=== PATIENT | female | born 1955 | race Caucasian/White ===

== ENCOUNTER → 2020-10-25 00:43 | Outpatient (CLI) | payer OTHER, SELFPAY ==
[2020-10-25 19:48] LABS: SARS-CoV-2 RNA PCR Negative
== END ==
PROVIDERS: PCP Family Medicine; Visit Provider Internal Medicine Gastroenterology
DX: Z01.812 Encounter for preprocedural laboratory examination (principal); Z20.822 Contact with and (suspected) exposure to COVID-19
CPT/HCPCS: C9803; U0003; U0005

== ENCOUNTER 2020-10-28 01:14 | Day surgery (SDC) | payer OTHER, SELFPAY ==
[2020-10-16 12:46] VITALS: BMI 25.1
[2020-10-28 07:37] VITALS: BP 104/66; PULSE 77; RESP 16; TEMP 36.8; O2SAT 99
[2020-10-28] MEDS: LACTATED RINGERS 1,000 ML 150 ML IV CONT (07:47)
--- NOTE | 2020-10-28 08:30 | WPDANESEPPF ---
Anes - Initial Pre Proc Eval Procedure: Operation Date: 10/28/20 08:45 Proposed Procedures p Screening Colonoscopy - Jose Jorge MD Date/Time: 10/28/20 08:30 Surgeon: Jose Jorge MD Pre Op Diagnosis: hx of colon polyp Patient Data Age: 65 Gender: F Height: 5 ft 9 in Weight: 77.2 kg Last Vital Signs Temp 36.8 C 10/28/20 07:37 Pulse 77 10/28/20 07:37 Resp 16 10/28/20 07:37 BP 104/66 10/28/20 07:37 Pulse Ox 99 10/28/20 07:37 Allergies Allergy/AdvReac Type Severity Reaction Status Date / Time No Known Allergies Allergy Unknown Verified 10/28/20 07:35 Home Medications Medication Instructions Recorded Confirmed Type estradiol 4 mcg vaginal insert 4 mcg VAGINAL 2XW #24 insert 08/07/19 03/11/20 Rx Patient hx anesthesia problems: none Family hx anesthesia problems: none PMFSH Past Medical History Medical History IgG deficiency Leukemia Umbilical hernia Family History Family History Father Family history of primary malignant neoplasm of liver Carcinoma of colon Grandparent Diabetes mellitus Mother Hypertension Cerebrovascular accident Carcinoma of colon Other Family history of allergic disorder Social History Social History Smoking status: Never smoker Alcohol intake: current Substance use type: does not use Living arrangements: with family Gender identity (if verbalized by the patient): Female Spiritual care concerns: No Anes - Eval Final PreProcedure Day of Procedure 10/28/20 08:30 Patient weight: normal Heart: regular rate and rhythm Lungs: clear to auscultation Airway: Mallampati scale class II Neurological: alert and oriented Last oral intake: >/= 8 hours ASA classification: III Emergent: no Anesthetic plan: proceed Anesthesia type and monitoring: general GIVS and standard monitoring Informed Consent: The patient's anesthetic plan and its attendant risks and benefits were discussed with the patient/family/POA. Questions were solicited and answers provided to the satisfaction of the patient/family/POA.
--- NOTE | 2020-10-28 08:55 | PM.HPGS ---
History of Present Illness History of Present Illness Consent: Risks, benefits, and alternatives have been discussed and questions answered. Patient agrees to proceed with procedure. Chief complaint: hx of colon polyp Narrative: Mary Alice Espinosa is a 65 year old female with polyp in 2017 Review of Systems Constitutional: Constitutional: Denies headache(s) and Denies weakness Eyes: Eyes: Denies blurry vision ENT: Reports Normal hearing present, Denies headache(s) and Denies neck pain Cardiovascular: Cardiovascular: Denies chest pain and Denies dyspnea Respiratory: Respiratory: Denies dyspnea Gastrointestinal: Gastrointestinal: Reports no additional gastrointestinal complaints Genitourinary: Genitourinary: Denies dysuria Musculoskeletal: Musculoskeletal: Denies neck pain Integumentary/Breasts: Skin/Breast: Denies dry skin Neurologic: Reports Normal hearing present, Denies headache(s) and Denies weakness Psychiatric: Psychiatric: Denies anxiety Endocrine: Endocrine: Denies change in body appearance Hematologic/Lymphatic: Hematologic/Lymphatic: Denies easy bleeding Allergic/Immunologic: Allergic/Immunologic: Denies urticaria PMFSH Past Medical History Medical History IgG deficiency Leukemia Umbilical hernia Family History Family History Father Family history of primary malignant neoplasm of liver Carcinoma of colon Grandparent Diabetes mellitus Mother Hypertension Cerebrovascular accident Carcinoma of colon Other Family history of allergic disorder Social History Social History Smoking status: Never smoker Alcohol intake: current Substance use type: does not use Living arrangements: with family Gender identity (if verbalized by the patient): Female Spiritual care concerns: No Meds Home Medications and Allergies Home Medications Medication Instructions Recorded Confirmed Type estradiol 4 mcg vaginal insert 4 mcg VAGINAL 2XW #24 insert 08/07/19 03/11/20 Rx Allergies Allergy/AdvReac Type Severity Reaction Status Date / Time No Known Allergies Allergy Unknown Verified 10/28/20 07:35 Vital Signs Vital Signs - 24 hr 10/28/20 07:37 Temperature 98.3 F Pulse Rate 77 Respiratory Rate 16 Blood Pressure 104/66 Pulse Oximetry 99 Exam Const: General: comfortable and no acute distress HENMT: General nose exam: Normal nares present Eyes: General: appearance normal, both eyes and all related structures Neck: Neck: no JVD Resp: Auscultation: clear to auscultation bilaterally Cardio: Rate: regular rate Rhythm: regular rhythm GI: Inspection: non-distended GI Palp: Yes Soft to palpation Skin: General skin exam: normal color Neuro: General: gait normal Speech: normal speech Extrem: General: normal to inspection Psych: Mental Status: mental status grossly normal Assessment and Plan Assessment and plan (1) Adenomatous colon polyp: Code(s): D12.6 - Benign neoplasm of colon, unspecified Status: Acute Assessment and Plan: proceed with colonoscopy
[2020-10-28 09:27] VITALS: BP 100/61; PULSE 59; RESP 16; O2SAT 100
[2020-10-28 09:37] VITALS: BP 97/47; PULSE 68; RESP 20; O2SAT 100
[2020-10-28 09:47] VITALS: BP 103/64; PULSE 56; RESP 14; O2SAT 100
== END 2020-10-28 10:08 | disposition home or self-care (01) ==
PROVIDERS: PCP Family Medicine; Visit Provider Internal Medicine Gastroenterology
PROC: 0DJD8ZZ Inspection of Lower Intestinal Tract, Via Natural or Artificial Opening Endoscopic (ICD-10-PCS; CPT 45378; principal; 2020-10-28 08:45)
DX: Z12.11 Encounter for screening for malignant neoplasm of colon (principal); D12.3 Benign neoplasm of transverse colon; K57.30 Diverticulosis of large intestine without perforation or abscess without bleeding; K64.8 Other hemorrhoids; D80.3 Selective deficiency of immunoglobulin G [IgG] subclasses; Z85.6 Personal history of leukemia
CPT/HCPCS: 45385; 88305; C9803; J2704; J7120; U0003; U0005

== ENCOUNTER → 2020-11-25 13:54 | Outpatient (CLI) | payer OTHER, SELFPAY ==
--- NOTE | ~2020-11-25 | CT_ITS ---
EXAMINATION: CT foot LT wo con DATE: 11/25/2020 14:12 INDICATION: Fracture. TECHNIQUE: Computed tomography (CT) of the left foot was performed without intravenous contrast. Axia l and coronal reconstructions were performed. Automated exposure control and iterative reconstruction technique were employed. The dose-length product was 167 mGy-cm. COMPARISON: MRI dated 02/05/2019 FINDINGS: Interval first tarsal metatarsal arthrodesis with solid osseous fusion and internal fixation with a p air of dorsal plate and screws. There is also been interval realignment osteotomy with screw fixation at the head of the second metatarsal which also solidly fused. Finally there has been interval osteo tomies for hammertoe corrections of the heads of the second and fourth proximal phalanges. The previo usly seen hallux valgus appears slightly decreased in severity. Alignment is otherwise normal. No fra ctures. Moderate osteoarthritis at the first metatarsophalangeal and third tarsal metatarsal joints. Mild osteoarthritis at several remaining tarsal metatarsal and interphalangeal joints. 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 Both the tibialis anterior and extensor hallucis longus tendons appeared thi ckened and with decrease in attenuation relative to the remaining tendons at the ankle which can be s een with tendinopathy. The level of the head of the talus there is a relatively abrupt transition to a smaller caliber of the extensor pollicis longus tendon which suggest possibility of at least partia l thickness tendon tear. Assessment of the ligaments and tendons is however significantly more limite d with CT than MRI. In addition assessment of the more distal extensor carpus longus tendon is limite d by postoperative scarring related to the first tarsal metatarsal arthrodesis and streak artifact fr om the associated fixation instrumentation. There is moderate fatty atrophy of the intrinsic musculat ure of the foot. IMPRESSION: 1. Postoperative changes as detailed above including first tarsal metatarsal instrumented arthrodesis , asymmetrically alignment osteotomy at the head of the second metatarsal and shortening osteotomies for hammertoe correction at the second and fourth proximal phalanges. No acute osseous abnormality. 2. Thickening and decreased attenuation of the tibialis anterior and extensor hallucis longus tendons which can be seen with tendinopathy. Relatively abrupt attenuation of the extensor atelectasis longu s tendon at the level of the head of the talus suggests possibility of at least partial thickness tea r. Could consider repeat MRI of the left foot and ankle for more definitive determination. Reviewed, dictated and finalized at location B. IMPRESSION: 1. Postoperative changes as detailed above including first tarsal metatarsal in strumented arthrodesis, asymmetrically alignment osteotomy at the head of the s econd metatarsal and shortening osteotomies for hammertoe correction at the sec ond and fourth proximal phalanges. No acute osseous abnormality. 2. Thickening and decreased attenuation of the tibialis anterior and extensor h allucis longus tendons which can be seen with tendinopathy. Relatively abrupt a ttenuation of the extensor atelectasis longus tendon at the level of the head o f the talus suggests possibility of at least partial thickness tear. Could cons ider repeat MRI of the left foot and ankle for more definitive determination.
== END ==
PROVIDERS: Visit Provider Podiatrist Foot & Ankle Surgery
DX: S92.314 Nondisplaced fracture of first metatarsal bone, right foot (principal); X58.XXXD Exposure to other specified factors, subsequent encounter; M65.872 Other synovitis and tenosynovitis, left ankle and foot
CPT/HCPCS: 73700

== ENCOUNTER 2021-01-05 14:57 | Outpatient (CLI) | payer OTHER, SELFPAY ==
--- NOTE | ~2021-01-05 | MM_ITS ---
EXAMINATION: MM screening misty BI w will HISTORY: Screening TECHNIQUE: Craniocaudal and mediolateral oblique 3-D tomosynthesis images were obtained and synthetic 2-D images were generated. CAD analysis was submitted and interpreted. COMPARISON: Comparison to multiple prior studies sequentially, with oldest reviewed study dated 10/2011. BREAST PARENCHYMAL COMPOSITION: The breasts are heterogeneously dense, which may obscure small masses . FINDINGS: There is no evidence of suspicious mass, calcification, or architectural distortion to sugg est malignancy in either breast. There has been no suspicious interval change. IMPRESSION: 1. No mammographic evidence of malignancy. 2. Recommend routine screening mammography in one year. BI-RADS Category 1: Negative Reviewed, dictated and finalized at location A.
--- NOTE | ~2021-01-05 | DEXA_ITS ---
Bone Density Report Name: Mary Alice Espinosa Age: 65 Sex: Female Ethnicity: White Date of : 1955 Indication: osteopenia; height loss; cancer; hysterectomy; Referring Provider: PRINCE MOSES Study: Bone densitometry was performed. Exam Date: January 05, 2021 Accession number: [id number] Bone Density: Region BMD T-score Z-score Classification AP Spine (L1-L4) 0.827 -2.0 -0.2 Osteopenia Femoral Neck (Left) 0.733 -1.0 0.5 Normal Total Hip (Left) 0.938 0.0 1.2 Normal Total Hip Bilateral Avg 0.925 -0.2 1.1 Normal Femoral Neck (Right) 0.698 -1.4 0.2 Osteopenia Total Hip (Right) 0.910 -0.3 1.0 Normal World Health Organization criteria for BMD impression classify patients as: Normal (T-score at or above -1.0), Osteopenia (T-score between -1.0 and -2.5), or Osteoporosis (T-score at or below -2.5). 10-year Fracture Risk(1): Major Osteoporotic Fracture 8.6% Hip Fracture 0.8% Reported Risk Factors: [place] (), Neck BMD=0.698, BMI=25.8 (1) FRAX(R) Version 3.08. Fracture probability calculated for an untreated patient. Fracture probability may be lower if the patient has received treatment. Previous Exams: Region Exam Age BMD T-score BMD Change BMD Change Date g/cm2 vs Baseline vs Previous AP Spine(L1-L4) 01/05/2021 65 0.827 -2.0 -0.164(-16.6%) -0.021(-2.5%)# 04/08/2017 61 0.848 -1.8 -0.143(-14.4%) -0.143(-14.4%) 03/24/2012 56 0.992 -0.5 Total Hip(Left) 01/05/2021 65 0.938 0.0 -0.108(-10.4%) 0.029(3.2%)# 04/08/2017 61 0.908 -0.3 -0.138(-13.2%) -0.138(-13.2%) 03/24/2012 56 1.046 0.9 Total Hip(Right) 01/05/2021 65 0.910 -0.3 -0.072(-7.3%)* 0.053(6.2%)# 04/08/2017 61 0.857 -0.7 -0.125(-12.7%) -0.125(-12.7%) 03/24/2012 56 0.982 0.3 *Denotes significance at 95% confidence level, LSC for AP Spine = 0.022 g/cm2, LSC for Total Hip = 0.027 g/cm2 Clinical Information Provided by Patient: Has used the following medications: Vitamin D, Calcium Has the following medical conditions: Cancer, Hysterectomy Patient maximum height was 70 No regular weight bearing exercise Onset of menses at age 14 Number of children 1 Impression: The patient has low bone mass, based on the Total Spine T-score. The patient has an estimated ten-year risk of hip fracture of 0.8% and an estimated ten-year risk of major fracture of 8.6%, based on the WHO FRAX algorithm. No significant bone loss was observed. Discuss
== END 2021-01-05 14:58 | disposition home or self-care (01) ==
LOC: ANHIMG 14:59
PROVIDERS: PCP Family Medicine; Visit Provider Obstetrics & Gynecology
DX: Z12.31 Encounter for screening mammogram for malignant neoplasm of breast (principal); Z78.0 Asymptomatic menopausal state; M85.88 Other specified disorders of bone density and structure, other site; M85.851 Other specified disorders of bone density and structure, right thigh
CPT/HCPCS: 77063; 77067; 77080

== ENCOUNTER 2021-01-22 06:51 | Outpatient (CLI) | payer OTHER, SELFPAY ==
[2021-01-22 07:56] LABS: Alanine Aminotransferase 22 U/L (4-35); Albumin Level 4.2 g/dL (3.5-5.1); Alkaline Phosphatase 80 U/L (38-126); Anion Gap 8 mmol/L (8-16); Aspartate Amino Transferase 31 U/L (14-36); Bilirubin,Total 0.6 mg/dL (0.2-1.3); Blood Urea Nitrogen 12 mg/dL (7-17); Calcium 9.1 mg/dL (8.4-10.2); Carbon Dioxide 27 mmol/L (22-30); Chloride 109 mmol/L (98-107); Cholesterol 218 mg/dL (0-200); Estimated Glomerular Filt Rate > 60; Glucose 97 mg/dL (65-105); HDL Direct 62 mg/dL; Sodium 144 mmol/L (137-145); Triglycerides 101 mg/dL (<150)
[2021-01-22 08:07] LABS: LDL Cholesterol Direct 103 mg/dL
[2021-01-22 08:27] LABS: Vitamin D 25 Hydroxy 64.8 ng/mL
[2021-01-22 08:38] LABS: Eosinophils Absolute Auto 0.1 K/mm3 (0-0.3); Hematocrit 34.4 % (37.0-47.0); Hemoglobin 12.2 g/dL (12.0-15.0); Immature Granulocyte Absolute 0.01 K/mm3 (0.00-0.031); Immature Granulocyte Percent A 0.3 % (0-0.5); Lymphocytes Percent Auto 23.5 % (18.3-44.2); Mean Corpuscular HGB Conc 35.5 g/dl (32-36); Mean Corpuscular Hemoglobin 34.1 pg (26-34); Mean Corpuscular Volume 96.1 fl (80-100); Mean Platelet Volume 9.9 fl (7.4-10.4); Monocytes Absolute Auto 0.3 K/mm3 (0.1-0.6); Monocytes Percent Auto 11.4 % (2.6-8.5); Neutrophils Absolute Auto 1.8 K/mm3 (1.3-6.7); Neutrophils Percent Auto 61.8 % (45.5-73.1); Platelet Count Result 132 k/mm3 (150-375); Red Blood Count 3.58 M/mm3 (4.2-5.4)
== END 2021-01-22 06:52 | disposition home or self-care (01) ==
PROVIDERS: PCP Family Medicine; Referring Provider Family Medicine; Visit Provider Obstetrics & Gynecology
DX: Z13.220 Encounter for screening for lipoid disorders (principal); R10.11 Right upper quadrant pain; N95.1 Menopausal and female climacteric states
CPT/HCPCS: 36415; 80053; 80061; 82306; 82728; 85025

== ENCOUNTER 2021-01-29 07:34 | Outpatient (CLI) | payer OTHER, SELFPAY ==
--- NOTE | ~2021-01-29 | US_ITS ---
US abdomen complete EXAMINATION: US Abdomen Complete INDICATION: Right upper quadrant abdominal pain PROCEDURE: Realtime High Resolution abdomen ultrasound. COMPARISON: Ultrasound dated 03/02/2017 FINDINGS: There are gallstones. There are gallbladder polyps measuring 6 mm or less. 6 Common bile d uct measures mm. Liver echotexture within normal limits without focal mass. Pancreas within normal limits. Pancreati c tail is obscured by bowel gas. Spleen is borderline measuring 12.7 cm. 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 Right kidney is normal without hydronephrosis, contour deforming mass or renal calculi. Visualized aspects of the aorta and IVC are within normal limits. Portal vein is patent. No sonograph ic Ferrari's sign indicated by the technologist. IMPRESSION: 1: Cholelithiasis with gallbladder polyps measuring up to 6 mm, unchanged. 2: Borderline size spleen measuring 12.7 cm. Reviewed, dictated and finalized at location B.
== END 2021-01-29 07:35 | disposition home or self-care (01) ==
LOC: ANHIMG 07:37
PROVIDERS: PCP Family Medicine; Visit Provider Family Medicine
DX: R10.11 Right upper quadrant pain (principal); K80.20 Calculus of gallbladder without cholecystitis without obstruction
CPT/HCPCS: 76700

== ENCOUNTER 2021-03-06 08:10 | Outpatient (CLI) | payer OTHER, SELFPAY ==
[2021-03-06 08:50] LABS: Alanine Aminotransferase 22 U/L (4-35); Albumin Level 4.4 g/dL (3.5-5.1); Alkaline Phosphatase 95 U/L (38-126); Amylase 66 U/L (30-110); Aspartate Amino Transferase 26 U/L (14-36); Bilirubin,Total 0.7 mg/dL (0.2-1.3); Lipase 63 U/L (23-300)
== END 2021-03-06 08:11 | disposition home or self-care (01) ==
LOC: ANHSURGERY 08:13
PROVIDERS: PCP Family Medicine; Visit Provider Surgery
DX: K80.10 Calculus of gallbladder with chronic cholecystitis without obstruction (principal); Z85.6 Personal history of leukemia; Z01.818 Encounter for other preprocedural examination
CPT/HCPCS: 36415; 80076; 82150; 83690

== ENCOUNTER 2021-03-09 02:36 | Day surgery (SDC) | payer OTHER, SELFPAY ==
[2021-03-05 10:00] VITALS: BMI 25.9
[2021-03-09] VITALS (11 sets, daily range): BP systolic 104–123; BP diastolic 55–69; PULSE 50–75; RESP 13–20; TEMP 36.8; O2SAT 100
--- NOTE | 2021-03-09 07:34 | WPDANESEPPF ---
Anes - Initial Pre Proc Eval Procedure: Operation Date: 03/09/21 11:00 Proposed Procedures p Laparoscopic Cholecystectomy Possible Intraoperative Cholangiogram, Possible Open - Tony Perales MD s Open Umbilical Hernia Repair, Excision of Right Upper Quadrant Skin Lesion - Tony Perales MD Date/Time: 03/09/21 07:34 Surgeon: Tony Perales MD Pre Op Diagnosis: cholelithiasis with cholecystitis, umbili hernia, Patient Data Age: 65 Gender: F Height: 1.75 m Weight: 79.54 kg Allergies Allergy/AdvReac Type Severity Reaction Status Date / Time No Known Allergies Allergy Unknown Verified 03/09/21 09:21 Home Medications Medication Instructions Recorded Confirmed Type B-complex with vitamin C 1 tablet PO DAILY 12/02/20 03/09/21 History calcium carbonate 195 mg calcium 195 mg PO DAILY tablet 12/02/20 03/09/21 History (500 mg) chewable tablet zinc 50 mg tablet 50 mg PO DAILY 12/02/20 03/09/21 History estradiol 4 mcg vaginal insert 4 mcg VAGINAL 2XW #24 insert 12/15/20 03/09/21 Rx ascorbic acid (vitamin C) 500 mg 500 mg PO DAILY 03/02/21 03/09/21 History capsule,extended release cholecalciferol (vitamin D3) 10 10 mcg PO DAILY 03/02/21 03/09/21 History mcg (400 unit) capsule Patient hx anesthesia problems: none Family hx anesthesia problems: none PMFSH Past Medical History Medical History Adenomatous colon polyp BMI 25.0-25.9,adult Gallstones History of blood transfusion IgG deficiency Leukemia Right upper quadrant abdominal pain Screening for lipid disorders Umbilical hernia Surgical History Surgical History H/O: hysterectomy History of bunionectomy History of section History of tubal ligation Family History Family History Father Family history of primary malignant neoplasm of liver Carcinoma of colon Grandparent Diabetes mellitus Mother Hypertension Cerebrovascular accident Carcinoma of colon Other Family history of allergic disorder Social History Social History Social History: Drinks caffeinated tea daily Smoking status: Never smoker Second hand tobacco smoke exposure: No Alcohol intake: current Alcohol use details: STATES MAYBE 2-3 DRINKS A MONTH Substance use: never Substance use type: does not use Living arrangements: with family Additional living arrangements comments: with spouse Gender identity (if verbalized by the patient): Female Spiritual care concerns: No Anes - Eval Final PreProcedure Day of Procedure 03/09/21 07:34 Patient weight: overweight Heart: regular rate and rhythm Lungs: clear to auscultation and normal air movement Airway: Mallampati scale class II Neurological: alert and oriented Last oral intake: >/= 8 hours ASA classification: III Emergent: no Anesthetic plan: proceed Anesthesia type and monitoring: general ETT and standard monitoring Informed Consent: The patient's anesthetic plan and its attendant risks and benefits were discussed with the patient/family/POA. Questions were solicited and answers provided to the satisfaction of the patient/family/POA.
[2021-03-09] MEDS: ACETAMINOPHEN 500 MG TABLET 1000 MG PO (09:36)
[2021-03-09] MEDS: LACTATED RINGERS 1,000 ML 30 ML IV CONT ×2 (10:00→13:37)
[2021-03-09] MEDS: KETOROLAC 15 MG/ML VIAL (*BKC) IV PUSH (10:00)
--- NOTE | 2021-03-09 10:54 | WPDHPUPDATE1 ---
History and Physical Update Update Date/Time: 03/09/21 10:54 History and Physical has been reviewed, including an updated exam of the patient. There are NO changes in the patient's condition. Risks, benefits, and alternatives have been discussed and questions answered. Patient agrees to proceed with procedure.
[2021-03-09] MEDS: ceFAZolin 2 GM/D5W 50 ML 2 GM/50 ML BAG IVPB (11:03)
--- NOTE | 2021-03-09 13:44 | W.PM.PROC2 ---
Procedure Note - Detailed Date of Procedure 03/09/21 Pre-op Diagnosis 1. Chronic cholelithiasis with cholecystitis 2. umbilical hernia 3. dark brown skin lesion RUQ of the abdomen. Post-op Diagnosis same Procedure Performed 1. Laparoscopic cholecystectomy 2. Open repair of umbilical hernia with sutures 3. Excision of skin lesion right upper quadrant of the abdomen. Surgeon Tony Perlaes MD Rn Liaison MYRANDA Horner, OR engineer first assistant Anesthesia general Indications Increasing number of episodes of right upper quadrant epigastric pain with known cholelithiasis by ultrasound. Bulging at the umbilicus, upper end, with suspected fascial defect and reducible umbilical hernia A changing dark skin lesion on the skin of the right upper quadrant the abdomen ( 6 mm in size). Findings there was a 15 mm fascial defect under the upper edge of the umbilicus with incarcerated preperitoneal fat within it. There was a non inflamed gallbladder with significant omental adhesions to its underside and palpable cholelithiasis upon removal There was a oval 6 x 4 mm skin lesion that is dark brown in the upper quadrant of the abdomen slightly below the costal margin on the right. Description of Procedure Patient was seen preoperatively in the holding area and risks, benefits and alternatives confirmed. Patient was taken to the operating room and general anesthesia was induced. A time out was then preformed with the surgery team confirming patient and site of surgery. The abdomen was prepped and draped in the usual sterile fashion. Incision was made just above the umbilicus with an 15 blade knife. Since the patient has a umbilical defect under the upper portion of the umbilicus I made this in a curvilinear fashion with the two outside corners angled slightly down in a frown shape. The entire incision was about 3 cm long. We then carefully dissected the umbilical skin off the underlying defect which contained some preperitoneal fat. This almost looked like a lipoma but I believe it was preperitoneal fat up in a very thin umbilical hernia sac. The sac and the preperitoneal tissues were dissected off the underlying preperitoneal tissue which we grasped with a hemostat on the underlying omental tissue holding it tightly, so that it would not bleed and retract into the abdomen. Then I amputated the preperitoneal fat at the level of the fascia and the sac and preperitoneal fat were carefully passed off the field for specimen. We then continued observing the underlying tissues to be sure there was no bleeding. I placed 2 stay sutures of O- Vicryl on either side of the umbilical defect and was then able to slide in the Walker cannula through the fascial defect into the peritoneum. First under low flow and then under high flow the abdomen was insufflated with carbon dioxide never exceeding a pressure of 14. Three 5 mm trocars were then introduced under direct vision. The following trocars were introduced under direct vision: a 5 mm in the epigastrium and two 5 mm trocars along the right costal margin laterally in the subcostal area. There were significant omental adhesions to the underside of the gallbladder. These were taken down with blunt and sharp dissection using some Bovie cautery for hemostasis. We were able to dissect this completely away from the neck of the gallbladder. I then carefully used the L-shaped cautery and the [place] dissector to dissect out the triangle of Calot. I then was able to dissect out both the cystic duct and cystic artery and identify a window of safety. The gall bladder was grasped and the cystic duct and artery were dissected free and clipped with an 5 mm endo-clip javascript programmer. The cystic duct and artery were clipped with use of 2 clips on the patient's side and one on the gallbladder side utilizing a 5 mm endoclip-javascript programmer. The cystic duct was then transected. The cystic artery was also transected at this point. The gall bladder was remov
[2021-03-09] MEDS: oxyCODONE HCL (*CRX) 5 MG TAB IR PO (14:37)
== END 2021-03-09 15:50 | disposition home or self-care (01) ==
PROVIDERS: PCP Family Medicine; Visit Provider Surgery
PROC: 0FT44ZZ Resection of Gallbladder, Percutaneous Endoscopic Approach (ICD-10-PCS; CPT 47562; principal; 2021-03-09 11:00)
PROC: (CPT 47562; 2021-03-09 11:00)
DX: K80.10 Calculus of gallbladder with chronic cholecystitis without obstruction (principal); K40.30 Unilateral inguinal hernia, with obstruction, without gangrene, not specified as recurrent; D23.5 Other benign neoplasm of skin of trunk; K66.0 Peritoneal adhesions (postprocedural) (postinfection); E66.3 Overweight; Z68.26 Body mass index [BMI] 26.0-26.9, adult; Z85.6 Personal history of leukemia
CPT/HCPCS: 47562; 49587; 11401; 36415; 80076; 82150; 83690; 88302; 88304; 88305; A9270; J0690; J1100; J1885; J2704; J2710; J3010; J7030; J7120

== ENCOUNTER → 2021-04-01 09:53 | Outpatient (CLI) | payer OTHER, SELFPAY ==
--- NOTE | ~2021-04-01 | MR_ITS ---
EXAMINATION: MR ankle LT wo con DATE: 04/01/2021 10:42 INDICATION: Inability to move the great toe and pain. From the great toe to the ankle with possible e xtensor hallucis longus tendon tear. TECHNIQUE: Magnetic resonance imaging (MRI) of the left foot and ankle was performed without intraven ous contrast. Sequences included axial, sagittal and coronal PD-weighted FSE and fluid sensitive FSE STIR. COMPARISON: Left foot CT dated 11/25/2020 and MRI dated 02/05/2019 FINDINGS: Bones/other: First tarsal metatarsal arthrodesis with magnetic metallic field artifact associated with a pair of d orsal plate and screw fixations spanning the fused joint space. Additional postoperative changes at t he second metatarsophalangeal joint with fixation screws at the head of the second metatarsal likely related to prior realignment osteotomy. There is mild valgus angulation at the second metatarsophalan geal joint. There is additional osteotomies at the heads of the second and fourth proximal phalanges. Polyarticular osteoarthritis, severe at the third tarsal metatarsal joint with subarticular cystic c hange and edema, moderate severity at the first metatarsophalangeal joint joint and mild at remaining tarsal metatarsal and many of the interphalangeal joints. No fracture, osteonecrosis or pathologic m arrow replacing process. Progression of fatty atrophy of the intrinsic musculature of the foot. Medial ankle ligaments: Deep and superficial deltoid ligaments as well as the spring ligament are normal. Lateral ankle ligaments: The anterior and posterior inferior tibiofibular ligaments are normal. The anterior talofibular, calc aneofibular and posterior talofibular ligaments are normal. Tendons: Achilles tendon is normal. The peroneus longus and brevis tendons are normal. The tibialis anterior a nd extensor digitorum longus tendons are normal. As on the prior CT there is relatively abrupt attenu ation of the extensor hallucis longus tendon at the level of the talonavicular joint line. The patien t is obscured by the magnetic field artifact at the level of the medial cuneiform and base of the fir st metatarsal. The tendon or tendon sheath however appears significantly attenuated at the level of t he neck of the first metatarsal relative to its thickness at this level on the prior MRI. Findings ar e consistent with recent partial if not complete tear however no discrete tear defect is appreciated, potentially obscured by the region of artifact. The tibialis posterior, flexor digitorum longus and flexor hallucis longus tendons are normal. Plantar fascia: Chronic mild plantar enthesopathy with mild thickening without significant increased signal at the pr oximal plantar aponeurosis and with small plantar calcaneal spur at the calcaneal attachment. Fluid: No joint effusions, bursitis or other abnormal fluid collections at the left foot or ankle. IMPRESSION: 1. The distal extensor hallucis longus tendon appears significantly attenuated both with respect to t he more proximal tendon as well as with respect to the full-thickness of the distal tendon on the timbo or MRI from 2019 consistent with at least partial if not complete tear. The intervening portion of th e tendon at the level of the medial cuneiform and base of the first metatarsal is however obscured by metallic magnetic field artifact from plate and screw fixations for the first tarsal metatarsal arth rodesis. 2. Polyarticular osteoarthritis in the mid and forefoot, severe at the third tarsal metatarsal joint and moderate severity at the first metatarsophalangeal joint. Reviewed, dictated and finalized at location A.
== END ==
PROVIDERS: Visit Provider Podiatrist Foot & Ankle Surgery
DX: M65.872 Other synovitis and tenosynovitis, left ankle and foot (principal); M19.072 Primary osteoarthritis, left ankle and foot
CPT/HCPCS: 73721

== ENCOUNTER 2022-04-02 07:53 | Outpatient (CLI) | payer MEDICARE, OTHER, SELFPAY ==
--- NOTE | ~2022-04-02 | MM_ITS ---
EXAMINATION: MM screening [facility] BI w will HISTORY: Screening mammogram TECHNIQUE: Craniocaudal and mediolateral oblique 3-D tomosynthesis images were obtained and synthetic 2-D images were generated. CAD analysis was submitted and interpreted. COMPARISON: 01/05/2021, 08/03/2018, 04/08/2017 BREAST PARENCHYMAL COMPOSITION: The breasts are heterogeneously dense, which may obscure small masses . FINDINGS: There is no suspicious mass, calcification, or architectural distortion to suggest malignan cy in either breast. There has been no suspicious interval change. IMPRESSION: 1. No mammographic evidence of malignancy. 2. Recommend routine screening mammography in one year. BI-RADS Category 1: Negative Reviewed, dictated and finalized at location A.
== END 2022-04-02 07:54 | disposition home or self-care (01) ==
LOC: ANHIMG 07:57
PROVIDERS: PCP Family Medicine; Visit Provider Obstetrics & Gynecology
DX: Z12.31 Encounter for screening mammogram for malignant neoplasm of breast (principal)
CPT/HCPCS: 77063; 77067

== ENCOUNTER 2023-04-13 13:40 | Outpatient (CLI) | payer MEDICARE, OTHER, SELFPAY ==
--- NOTE | ~2023-04-13 | XR_ITS ---
XR hip RT min 2V 04/13/2023 13:58 Indication: Right hip pain. Limited range of motion. Procedure: 2 views right hip Comparison: 02/27/2018 Findings: No fracture or traumatic malalignment. Mild osteoarthritis of the right hip. No significant joint space narrowing. No soft tissue abnormality. No foreign bodies. Impression: 1: Mild osteoarthritis of the right hip. Reviewed, dictated and finalized at location B. Impression: 1: Mild osteoarthritis of the right hip.
== END 2023-04-13 13:41 | disposition home or self-care (01) ==
LOC: ANHIMG 13:43
PROVIDERS: PCP Family Medicine; Visit Provider Family Medicine
DX: M16.11 Unilateral primary osteoarthritis, right hip (principal)
CPT/HCPCS: 73502

== ENCOUNTER 2023-04-15 07:11 | Outpatient (CLI) | payer MEDICARE, OTHER, SELFPAY ==
[2023-04-15 07:59] LABS: Alanine Aminotransferase 17 U/L (6-35); Albumin Level 4.5 g/dL (3.5-5.1); Alkaline Phosphatase 94 U/L (38-126); Anion Gap 5 mmol/L (8-16); Aspartate Amino Transferase 22 U/L (14-36); Bilirubin,Total 0.8 mg/dL (0.2-1.3); Blood Urea Nitrogen 15 mg/dL (7-17); Calcium 9.1 mg/dL (8.4-10.2); Carbon Dioxide 28 mmol/L (22-30); Chloride 106 mmol/L (98-107); Cholesterol 218 mg/dL (0-200); Estimated Glomerular Filt Rate > 60; Glucose 103 mg/dL (65-110); HDL Direct 66 mg/dL; Potassium 4.4 mmol/L (3.4-5.0); Sodium 139 mmol/L (137-145); Triglycerides 136 mg/dL (<150)
[2023-04-15 08:09] LABS: LDL Cholesterol Direct 115 mg/dL
[2023-04-15 11:52] LABS: Hematocrit 39.2 % (37.0-47.0); Hemoglobin 13.5 g/dL (12.0-15.0); Mean Corpuscular HGB Conc 34.4 g/dl (32-36); Mean Corpuscular Hemoglobin 33.8 pg (26-34); Mean Corpuscular Volume 98.2 fl (80-100); Mean Platelet Volume 10.4 fl (7.4-10.4); Platelet Count Result 135 k/mm3 (150-375); Red Blood Count 3.99 M/mm3 (4.2-5.4); Red Cell Distribution Width 12.1 % (11.5-14.5); White Blood Count 3.6 K/mm3 (4.5-10.0)
[2023-04-22 14:11] LABS: Estrogen 60 pg/mL
== END 2023-04-15 07:12 | disposition home or self-care (01) ==
PROVIDERS: PCP Family Medicine; Visit Provider Nurse Practitioner Family
DX: R23.2 Flushing (principal); J10.1 Influenza due to other identified influenza virus with other respiratory manifestations; Z85.6 Personal history of leukemia; E78.00 Pure hypercholesterolemia, unspecified
CPT/HCPCS: 36415; 80053; 80061; 82672; 84443; 85027

== ENCOUNTER → 2023-05-09 14:22 | Outpatient (CLI) | payer MEDICARE, OTHER, SELFPAY ==
--- NOTE | ~2023-05-09 | XR_ITS ---
EXAMINATION: XR thoracic spine 3V DATE: 05/09/2023 14:37 INDICATION: Mid back pain. TECHNIQUE: 3 views of thoracic spine on 4 radiographs were obtained. COMPARISON: Chest 2 views 05/16/2018 FINDINGS: There is 5 degrees levocurvature of thoracic spine. There is mild chronic height loss of mu ltiple midthoracic vertebral bodies. There is mildly decreased disc height at multiple levels in the mid thoracic spine. There are endplate osteophytes at a few levels. IMPRESSION: 1. Mild thoracic spondylosis. Reviewed, dictated and finalized at location E.
== END ==
PROVIDERS: PCP Family Medicine; Visit Provider Family Medicine
DX: M47.894 Other spondylosis, thoracic region (principal)
CPT/HCPCS: 72072

== ENCOUNTER 2023-05-13 14:40 | Outpatient (CLI) | payer MEDICARE, OTHER, SELFPAY ==
--- NOTE | ~2023-05-13 | MR_ITS ---
EXAMINATION: MR hip RT wo con DATE: 05/13/2023 15:41 INDICATION: Right hip pain TECHNIQUE: Magnetic resonance imaging (MRI) of the right hip was performed without intravenous contr ast. Sequences included full-field axial PD-weighted FS FSE and T1-weighted FSE, coronal of the pelvi s with PD-weighted FS FSE, small field of view of the right hip with axial PD-weighted FS FSE, sagit mikaela PD-weighted FS FSE and coronal PD weighted FS FSE. Additional radial T1-weighted FGR oriented ort hogonal to the acetabular rim were obtained for evaluation of the labrum. COMPARISON: None FINDINGS: Bones/labrum/cartilage: Alignment is normal. No fracture, avascular necrosis or pathologic marrow replacing process. Lumbar spondylosis with severe disc height loss and mild degenerative endplate changes at L5-S1. There is de generation of the anterosuperior right acetabular labrum with more clearly defined linear labral tear beginning at the 12:00 position and extending posteriorly to the 9:00 position. Mild to moderate ost eoarthritis at the right hip with nonuniform joint space narrowing with posterior predominant partial -thickness cartilage loss. Degenerative subarticular cystlike changes along the superolateral rim of the right acetabulum and the posterior inferior articular surface of the acetabulum. Subtle cortical irregularity along the posterior inferior right femoral head. Although not diagnostically evaluated o n the large [id number] images, there appears to be a linear tear at the posterior left acetabular labrum. Fluid: Symmetric physiologic amount of fluid within both hip joints. Small amount of likely physiologic free fluid in the deep pelvis. Soft tissues: Normal and symmetric muscle bulk and signal in the pelvis and visualized proximal thighs. The iliopso as, gluteal and proximal hamstring tendons are normal. The uterus is not identified and has likely be en surgically resected. Limited evaluation of visceral organs of the pelvis is otherwise unremarkable . No pathologically enlarged pelvic/inguinal lymphadenopathy. IMPRESSION: 1. Mild to moderate right hip osteoarthritis with associated anterior labral degeneration more discre te posterior labral tear. Reviewed, dictated and finalized at location A. IMPRESSION: 1. Mild to moderate right hip osteoarthritis with associated anterior labral de generation more discrete posterior labral tear.
== END 2023-05-13 14:41 | disposition home or self-care (01) ==
PROVIDERS: PCP Family Medicine; Visit Provider Family Medicine
DX: M16.11 Unilateral primary osteoarthritis, right hip (principal)
CPT/HCPCS: 73721

== ENCOUNTER 2023-06-23 12:24 | Outpatient (CLI) | payer MEDICARE, OTHER, SELFPAY ==
--- NOTE | ~2023-06-23 | DEXA_ITS ---
Bone Density Report Name: ALTHEA TELLES Age: 67 Sex: Female Ethnicity: White Date of : 1955 Indication: osteopenia; height loss; cancer; hysterectomy; postmenopausal Referring Provider: GUADALUPE HESTER Study: Bone densitometry was performed. Exam Date: June 23, 2023 Accession number: [id number] Bone Density: Region BMD T-score Z-score Classification AP Spine(L1-L4) 0.825 -2.0 -0.1 Osteopenia Femoral Neck (Left) 0.678 -1.5 0.1 Osteopenia Total Hip (Left) 0.930 -0.1 1.3 Normal Femoral Neck (Right) 0.723 -1.1 0.5 Osteopenia Total Hip (Right) 0.896 -0.4 1.0 Normal Total Hip Mean 0.913 -0.3 1.2 Normal World Health Organization criteria for BMD impression classify patients as: Normal (T-score at or above -1.0), Osteopenia (T-score between -1.0 and -2.5), or Osteoporosis (T-score at or below -2.5). 10-year Fracture Risk(1): Major Osteoporotic Fracture 9.6% Hip Fracture 1.2% Reported Risk Factors: [place] (), Neck BMD=0.678, BMI=26.0 (1) FRAX(R) Version 3.08. Fracture probability calculated for an untreated patient. Fracture probability may be lower if the patient has received treatment. Previous Exams: Region Exam Age BMD T-score BMD Change BMD Change Date g/cm2 vs Baseline vs Previous AP Spine (L1-L4) 06/23/2023 67 0.825 -2.0 -0.167 (-16.8% -0.003 (-0.3%) 01/05/2021 65 0.827 -2.0 -0.164 (-16.6% -0.021 (-2.5%) 04/08/2017 61 0.848 -1.8 -0.143 (-14.4% -0.143 (-14.4% 03/24/2012 56 0.992 -0.5 Total Hip(Left) 06/23/2023 67 0.930 -0.1 -0.116 (-11.1% -0.008 (-0.8%) 01/05/2021 65 0.938 0.0 -0.108 (-10.4% 0.029 (3.2%)# 04/08/2017 61 0.908 -0.3 -0.138 (-13.2% -0.138 (-13.2% 03/24/2012 56 1.046 0.9 Total Hip(Right) 06/23/2023 67 0.896 -0.4 -0.086 (-8.8%) -0.014 (-1.6%) 01/05/2021 65 0.910 -0.3 -0.072 (-7.3%) 0.053 (6.2%)# 04/08/2017 61 0.857 -0.7 -0.125 (-12.7% -0.125 (-12.7% 03/24/2012 56 0.982 0.3 *Denotes significance at 95% confidence level, LSC for AP Spine = 0.022 g/cm2, LSC for Total Hip = 0.027 g/cm2 # Denotes dissimilar scan types or analysis methods Clinical Information Provided by Patient: Has the following medical conditions: Cancer, Hysterectomy Patient maximum height was 69 Menopause Age: 50 Drinks caffeinated beverages Onset of menses at age 14 Number of children 3 Impression: The patient has low bone mass, bas
== END 2023-06-23 12:25 | disposition home or self-care (01) ==
LOC: ANHIMG 12:25
PROVIDERS: PCP Family Medicine; Visit Provider Family Medicine
DX: Z78.0 Asymptomatic menopausal state (principal); M85.88 Other specified disorders of bone density and structure, other site; M85.852 Other specified disorders of bone density and structure, left thigh; M85.851 Other specified disorders of bone density and structure, right thigh
CPT/HCPCS: 77080

== ENCOUNTER 2025-04-09 07:25 | Outpatient (CLI) | payer MEDICARE, OTHER, SELFPAY ==
--- OUTSIDE RECORDS SUMMARY | 2016-12-09 04:30 | XMS_ITS | Continuity of Care Document ---
Author Organization [facility] Address [id number] [place] [address] [address] [place] [address] Phone Care Team Providers Care Filenet Developer Name Role Phone Bertrand OD OD, Annmarie Unavailable Unavai lable Allergies, Adverse Reactions, Alerts Substance Reaction Status Criticality No Known Allergies Resolved No Inform ation Medications Medication Instructions Dosage Effective Dates (start - stop) Status Comments Rituxan 10 mg/mL concentrate,intravenou s infuse (375MG/M2) by intravenous route once 375 MG/M2 - Active Bactrim DS 800 mg-160 mg tablet take 1 tablet by oral route every 12 hours 1.00 tablet - Active Ventolin HFA 90 mcg/actuation aerosol inhaler inhale 2 puff by inhalation route every 4 - 6 hours as needed - Active CYCLOPHOSPHAMIDE (unknown strength) take by oral route every day Not Available - Active ACYCLOVIR (unknown strength) take 1 capsule by oral route every 4 hours 5 times per day Not Available - Active PROTONIX (unknown strength) take 1 packet by oral route every day mixed in 1 teaspoonful of applesauce or apple juice Not Available - Active ZOFRAN (unknown strength) PRN Not Available - Active DICLOFENAC SODIUM (unknown strength) PRN Not Available - Active TRAMADOL HCL (unknown strength) PRN Not Available - Active Procedures Procedure Date POSTOP FOLLOW-UP VISIT POSTOP FOLLOW-UP VISIT CATARACT SURG W/IOL, 1 STAGE POSTOP FOLLOW-UP VISIT POSTOP FOLLOW-UP VISIT CATARACT SURG W/IOL, 1 STAGE OFFICE/OUTPATIENT VISIT, NEW OPHTHALMIC BIOMETRY OPHTHALMIC BIOMETRY MICROFLUID VENAKTESH TEARS DILATED EXAM RIGHT EYE DILATED EXAM LEFT EYE Advance Directives Directive Yes / No Effective Date File Name No Information Encounters Encounter Description Practice Location Reason(s) For Visit Diagnoses Date Provider Providers Copied on Encounter [facility], [address] [place] [address], [id number], tel:[phone] OPH CONSULT DOMINIC LIRIANO vision is improved OS (chief complaint) No Information 7 Derheimer OD Annmarie. [address], [address], [place], [place], [id number], [place]. tel:[phone] Referring Provider: Annmarie Thurston OD, [address], [place], [address] . tel:[phone] [facility], [address] [place] [address], [id number], tel:[phone] OPH CONSULT DOMINIC LIRIANO vision is improved OS (chief complaint)v ision is improved OD (chief complaint) No Information 7 Derheimer OD Annmarie. [address], [address], [place], [place], [id number], [place]. tel:[phone] Referring Provider: Annmarie Thurston OD, [address], [place], [address] . tel:[phone] [facility], [address] [place] [address], [id number], [place] tel:[phone] [facility] No Information 7 Juan Carlos Walker. [address], [address], [place], [place], [id number], [place]. tel:[phone] Referring Provider: Aaron Dumont, [address], [place], [address] . tel:[phone] [facility], [address] [place] [address], [id number], tel:[phone] OPH CONSULT DOMINIC LIRIANO no complaints OD (chief complaint) No Information Derheimer OD Annmarie. [address] [place], [place], [id number], [place]. tel:[phone] Referring Provider: Annmarie Thurston OD, [address] [place], [address] . tel:[phone] [facility], [address] [place] [address], [id number], tel:[phone] OPH CONSULT DOMINIC LIRIANO vision is improved OD (chief complaint) No Information Derheimer OD Annmarie. [address] [place], [place], [id number], [place]. tel:[phone] Referring Provider: Annmarie Thurston OD, [address] [place] [address], [address] . tel:[phone] [facility], [address] [place] [address], [id number], tel:[phone] [facility] No Information Juan Carlos Walker. [address], [place], [place], [id number], [place]. tel:[phone] Referring Provider: Aaron Rangel MD P, [address] [place], [address] . tel:[phone] OFFICE/OUTPA TIENT VISIT, [facility], [address] [place] [address], [id number], tel:[phone] OPH CONSULT DOMINIC LIRIANO Cataract Evaluation (chief complaint) Age-related nuclear cataract, bilateralKerat oconjunct sicca, not specified as Sjogren's, bilateralOther vitreous opacities, bilateral 6 Juan Carlos Walker. [address] [place], [place], [id number], [place]. tel:[phone] Referring Provider: Aaron Rangel MD P, [address] [facility] [address], [place], [address] . tel:[phone] Family History Family Member Type Diagnosis Age At Onset No Information Payers Payer name Insurance type Covered green party ID Ronnell burden(sSmooth JACOBSON [id number] Social History Type Description Quantity Date Captured Comments Alcohol Use Details Unknown Caffeine Use Details Unknown Tobacco Use Status No Information Smoking Status No Information Sex Female Chief Complaint And Reason For Visit From encounter dated '12/09/2016 09:30'. vision is improved OS (chief complaint) Reason For Referral Reason For Referral No Information History Of Present Illness Encounter Date Complaint History Of Prese nt Illness vision is improved vision is imp roved OS vision is improved vision is imp roved OD vision is improved vision is imp roved OS no complaints no complaints OD vision is improved vision is imp roved OD Cataract Evaluation The 60 year old female is present for a Cataract Evaluation in the right eye and left eye. Complains of blurred [place] [facility]-worsening over the last year or so. Also complains of halos and starbusts with night driving. Wears OTC readers. [facility] [place] [place].Tear Lab: [id number], [id number] treated for chronic lymphocytic leukemia Functional Status Date Functional Assessmen t No Information Instructions Date Instruction Additional Infor mation Impression/Plan - No treatment is required at this time. Will continue to observe condition and or symptoms. Reassured patient of current condition and treatment. Patient instructed to call if condition gets worse. Related to Other vitreous opacities, bilateral Impression/Plan - Th ere is no evidence of permanent changes to the cornea. Explained condition does not have a cure and will need artificial tears for maintenance. 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 Patient understands changing glasses will not improve vision. Patient desires to have surgery, recommend phacoemulsification with intraocular lens.Tear lab [id number] by MARISSA Schwarz Standard IOLAim distanceOD only at this time Related to Age-related nuclear cataract, bilateral Assessments Type Assessment Date No Information Patient Care Teams Name Effective Dates (start - stop) Status Members No Information
--- OUTSIDE RECORDS SUMMARY | 2025-04-09 07:36 | XMS_ITS | Clinical Summary ---
Author Organization [facility] Address [address] [place] [address] Care Team Providers Care Wares Sorter Name Role Phone Raymundo Palacios MD Primary Care Provider [phone] Manjinder Cortes MD Unavailable [phone] Allergies No known active allergies Medications estradioL (VAGIFEM) 10 mcg tablet Insert 1 tablet (10 mcg total) into the vagina 2 times a week Active calcium carbonate-vitamin D3 1,500 mg (600 mg elemental)-1,000 unit capsule Take by mouth Active therapeutic multivitamin (THERA) tabletIndications :Vitamin Deficiency Prevention Take 1 tablet by mouth daily Active Active Problems Problem Noted Date Diagnosed Date Chronic lymphocytic leukemia 09/17/2016 Immunizations Immunization Administration Dates Next Due Influenza, Quad, Adjuvantate d, Intramuscular 06/21/2022 Influenza, Quadrivalent, Bailey l Culture-based MDCK, Antibiotic Free, Intramuscular 06/26/2019 Influenza, Quadrivalent, Bailey l Culture-based MDCK, Preservative Free, Antibiotic Free, Intramuscular 07/27/2023,06/05/2018 Influenza, Quadrivalent, Hig h Dose, Preservative Free, Intrr 04/28/2021 Influenza, Quadrivalent, Spl it, Preservative Free, Intramuscular 05/27/2020,07/30/2016 Influenza, Split 09/10/2013 Influenza, Unspecified 06/21/2022,2016,07/30/2016,07/13,06/15/2016,04/27/2016,04/06/2016 ,03/30/2016,03/23/2016,02/17/2016,02/2016,12/29/2015,12/23/2015 Moderna SARS-CoV-2 Monovalen t Vaccination (12+ YRS) 06/26/2021,10/15/2020,09/17/2020 Moderna Sars-cov-2 Bivalent Vaccine 50 Mcg/0.5 mL (12+ YRS)-Blue/Beltran 06/21/2022 Pneumococcal Conjugate Pcv20 11/23/2021 Tdap 05/17/2023 ZOSTER LIVE 09/17/2016, 6,07/13/2016,06/15,05/18/2016,04/27/2016,04/06/2016 ,03/30/2016,03/23/2016,02/17/2016,02/2016,12/29/2015 Surgical History Surgery Date Site/Laterality Comments GALLBLADDER SURGERY FOOT SURGERY HYSTERECTOMY SECTION Medical History Medical History Date Comments Anemia Cancer (HCC) Osteoporosis Family History Medical History Relation Name Comments No Known Problems Brother Cancer Father Liver cancer Father Family history of liver cancer - (Added by TW Conv) Cancer Mother Hypertension Mother Stroke Mother Stroke Other Family history of stroke - Relation: Grandmother (Added by TW Conv) Relation Name Status Comments Brother Alive Father Mother Other Social History Tobacco Use Types Packs/Day Years Used Date Smoking Tobacco: Never Smokeless Tobacco: Never Comments Unknown Sex and Gender Information Value Date Recorded Sex Assigned at Not on file Legal Sex Female 8:54 AM LEGAL PROCESS SPECIALIST Gender Identity Not on file Sexual Orientation Not on file Obstetrics History Para Term AB IAB SAB Ectopic Multiple Livin g Live Births 2 2 2 Date Outcome GA Total Labor Labor/2nd/3rd Weight Sex Type Anes PTL [place] A1 A5 Name Clin Term Term Last Filed Vital Signs Vital Sign Reading Time Taken Comments Blood Pressure 113/66 07/25/2024 11:11 AM LEGAL PROCESS SPECIALIST Pulse 83 07/25/2024 11:11 AM LEGAL PROCESS SPECIALIST Temperature 36.8 C (98.3 F) 07/25/2024 11:11 AM LEGAL PROCESS SPECIALIST Respiratory Rate 16 07/25/2024 11:1 1 AM LEGAL PROCESS SPECIALIST Oxygen Saturation 97% 07/25/2024 11: 11 AM LEGAL PROCESS SPECIALIST Inhaled Oxygen Concentration - - Weight 80.6 kg (177 lb 12.8 oz) 024 11:11 AM LEGAL PROCESS SPECIALIST Height 174 cm (5' 8.5) 07/27/2023 10:3 0 AM LEGAL PROCESS SPECIALIST Body Mass Index 26.64 07/27/2023 10:30 AM LEGAL PROCESS SPECIALIST Plan of Treatment Health Maintenance Due Date Last Done Comments Colon Cancer Screening-Colonoscopy 1955 Depression Screening 1955 Fall Risk Assessment 1955 Hepatitis C Screening 1955 Osteoporosis Screening-Bone Density Scan 1955 Hepatitis B Screening 1973 Zoster Vaccine (1 of 2) 11/12/2016 09/17/19 17, 07/30/2016, 07/13/2016, Additional history exists Well Visit 65+ 2020 Covid-19 Vaccine (2023- 5 season) 2024 06/21/2022, 06/21/2022, 11/20/2021, Additional history exists Breast Cancer Screening-Mammogram 09/03/2024 024 Influenza Vaccine (#1) 2025 3, 06/21/2022, 06/21/2022, Additional history exists DTaP/Tdap/Td Vaccine (2 - Td or Tdap) 05/17/2033 05/17/2023 Pneumococcal vaccine 65+ Completed 11/23/2021 Procedures Procedure Name Priority Date/Time Associated Diagnosis Comments SCREENING MAMMOGRAM BILATERAL W JCARLOS Schedule Routine, Read Routine (OP Routine) 09/03/2023 7:37 AM LEGAL PROCESS SPECIALIST Screening mammogram, encounter for from Last 3 Months or Most Recently Relevant to Health Maintenance Results * Screening Mammogram Bilateral W Jcarlos (09/03/2023 7:37 AM LEGAL PROCESS SPECIALIST) Anatomical Region Laterality Modality Breast Bilateral Mammography 09/08/2023 8:39 PM LEGAL PROCESS SPECIALIST Impressions 09/08/2023 8:39 PM LEGAL PROCESS SPECIALIST There is no mammographic evidence of malignancy. A 1 year screening mammogram is recommended. BI-RADS: 1 - Negative. The patient has been or will be contacted. The patient will be entered into a reminder system with a target due date of 1 year for her next mammogram. Electronically signed by: Odette Coronel M.D. Narrative 09/08/2023 8:39 PM LEGAL PROCESS SPECIALIST EXAMINATION: SCREENING MAMMOGRAM BILATERAL W JCARLOS ORDERING HEALTHCARE PROVIDER: SELF SCREENING MAMMOGRAM HISTORY: Routine screening mammography. COMPARISON: 04/02/2022, 01/05/2021, 08/03/2018 TECHNIQUE: CC and MLO views of the bilateral breasts were obtained with digital technique using breast tomosynthesis with C view. Computer aided detection was utilized. FINDINGS: DENSITY: The tissue of the bilateral breasts is heterogeneously dense, which may obscure small masses. BREASTS: There are no suspicious masses, suspicious calcifications, or other suspicious findings in either breast. There has been no suspicious interval change. us Self Screening Mammogram IMG MAMMO PROCEDURES Fi nal Result from Last 3 Months or Most Recently Relevant to Health Maintenance Insurance [facility] [employer] PPO [facility] HMO [facility] MEDICARE [facility] Care Teams Wares Sorter Relationship Specialty Start Date End Date Raymundo Palacios MD PCP - General 11/23/16 Manjinder Cortes MD [id number] [facility] [address] [place] [id number] Medical Oncologist/Roadway Technician Medical Oncology 07/26/22
--- OUTSIDE RECORDS SUMMARY | 2025-04-09 07:36 | XMS_ITS | Clinical Summary ---
Author Organization [facility] [employer] Address [address] [place] [address] Care Team Providers Care Clinical Laboratory Technician Name Role Phone Raymundo Palacios MD Primary Care Provider [phone] Source Comments [facility] [employer],non-owned Affiliates and Associated Physician Practices is amultiple site organization consisting of ambulatory clinics and hospital sitesin [place], [place], [place] and [place]. This disclosure is being madepursuant to the Care Everywhere program and may not contain all information available regarding this patient. Last updated 18.[facility] [employer] Social History Tobacco Use Types Packs/Day Years Used Date Smoking Tobacco: Never Assessed Comments Unknown Sex and Gender Information Value Date Recorded Sex Assigned at Not on file Legal Sex Female 5:47 PM DIRECTOR OF PARTNER MARKETING Gender Identity Not on file Sexual Orientation Not on file Last Filed Vital Signs Vital Sign Reading Time Taken Comments Blood Pressure - - Pulse - - Temperature - - Respiratory Rate - - Oxygen Saturation - - Inhaled Oxygen Concentration - - Weight 69.4 kg (153 lb) 08/08/2016 12:51 PM DIRECTOR OF PARTNER MARKETING Height 175.3 cm (5' 9) 08/08/2016 12:51 PM DIRECTOR OF PARTNER MARKETING Body Mass Index 22.59 08/08/2016 12:51 PM DIRECTOR OF PARTNER MARKETING Plan of Treatment Health Maintenance Due Date Last Done Comments BONE DENSITY TESTING 1955 COLOGUARD (AGES 45-75) - COL ON CA SCREENING 1955 COLON MONITORING 1955 COLONOSCOPY - COLON CA SCREENING 1955 CT COLONOGRAPHY - COLON CA SCREENING 1955 Colorectal Cancer Screening 1955 FIT - COLON CA SCREENING 1955 FLEX SIG - COLON CA SCREENING 1955 LIPID TESTING 1955 MAMMOGRAM 1955 HEPATITIS C SCREENING 10/11/1973 DTAP/TDAP/TD VACCINES (1 - Tdap) 1974 PNEUMOCOCCAL VACCINE 50+ (1 of 1 - PCV) 2005 ZOSTER VACCINE (1 of 2) 2005 COVID-19 VACCINE (1 - 2023-2 5 season) 2024 DEPRESSION SCREENING 08/22/2024 INFLUENZA VACCINE (#1) 2025 Respiratory Syncytial Virus (RSV) Vaccine Pt: or over 60 yrs (1 - 1-dose 75+ series) 2030 HEPATITIS B VACCINE Aged Out No longe r eligible based on patient's age to complete this topic HIB VACCINE Aged Out No longer eligi ble based on patient's age to complete this topic HPV VACCINE Aged Out No longer eligi ble based on patient's age to complete this topic MENINGOCOCCAL (Group B) VACC INE SHARED DECISION-MAKING Aged Out No longer eligibl e based on patient's age to complete this topic MENINGOCOCCAL GROUPS A/C/Y/W VACCINE Aged Out No longer eligible b ased on patient's age to complete this topic Insurance [employer] Care Teams Clinical Laboratory Technician Relationship Specialty Start Date End Date Raymundo Palacios MD [address] [place] [address] PCP - General 07/08/17
[2025-04-09 07:52] LABS: Hematocrit 35.3 % (37.0-47.0); Hemoglobin 12.5 g/dL (12.0-15.0); Immature Granulocyte Percent A 0.3 % (0-0.5); Lymphocytes Absolute Auto 1.08 K/mm3 (0.9-3.2); Mean Corpuscular HGB Conc 35.4 g/dl (32-36); Mean Corpuscular Hemoglobin 33.2 pg (26-34); Mean Corpuscular Volume 93.6 fl (80-100); Nucleated Red Blood Cells Absolute Auto 0.000 K/mm3 (0.0-0.012); Nucleated Red Blood Cells Perc 0.0 % (0.0-0.2); Platelet Count Result 122 k/mm3 (150-375); Red Blood Count 3.77 M/mm3 (4.2-5.4); White Blood Count 3.7 K/mm3 (4.5-10.0)
[2025-04-09 08:14] LABS: Iron 97 ug/dL (37-170)
[2025-04-09 08:22] LABS: Alanine Aminotransferase 16 U/L (6-35); Albumin Level 4.1 g/dL (3.5-5.1); Alkaline Phosphatase 83 U/L (38-126); Anion Gap 5 mmol/L (4-12); Aspartate Amino Transferase 23 U/L (14-36); Bilirubin,Total 0.6 mg/dL (0.2-1.3); Blood Urea Nitrogen 14 mg/dL (7-17); Calcium 8.8 mg/dL (8.4-10.2); Carbon Dioxide 27 mmol/L (22-30); Chloride 108 mmol/L (98-107); Cholesterol 208 mg/dL (0-200); Estimated Glomerular Filt Rate > 60; Glucose 104 mg/dL (65-110); HDL Direct 57 mg/dL; Potassium 4.0 mmol/L (3.4-5.0); Sodium 140 mmol/L (137-145); Total Protein 6.2 g/dL (6.3-8.2); Triglycerides 141 mg/dL (<150)
[2025-04-09 08:23] LABS: Percent Iron Saturation 39 % (20-50)
[2025-04-09 08:50] LABS: Ferritin 460.00 ng/mL (11.1-264)
== END 2025-04-09 07:26 | disposition home or self-care (01) ==
LOC: ANHLAB 07:26
PROVIDERS: PCP Family Medicine; Visit Provider Family Medicine
DX: E78.5 Hyperlipidemia, unspecified (principal); E55.9 Vitamin D deficiency, unspecified; R79.89 Other specified abnormal findings of blood chemistry; D80.3 Selective deficiency of immunoglobulin G [IgG] subclasses; Z13.220 Encounter for screening for lipoid disorders
CPT/HCPCS: 36415; 80048; 80061; 80076; 82306; 82728; 83540; 83550; 85025

== ENCOUNTER 2025-04-11 09:09 | Outpatient (CLI) | payer MEDICARE, OTHER, SELFPAY ==
--- NOTE | ~2025-04-11 | XR_ITS ---
XR lumbar spine 6V w bending 04/11/2025 09:42 Indication: Degenerative disc disease. Procedure: 7 views lumbar spine Comparison: 07/08/2018 Findings: There has been progression of moderate lumbar spondylosis at L5-S1 characterized by disc narrowing, endplate sclerosis and vacuum phenomena. There is facet hypertrophy at this level. No acute fracture, subluxation or dislocation. No evidence for spondylolisthesis. There are cholecystectomy clips. Impression: 1: Progression of moderate spondylosis at L5-S1. Reviewed, dictated and finalized at location O. Impression: 1: Progression of moderate spondylosis at L5-S1.
--- NOTE | ~2025-04-11 | XR_ITS ---
XR thoracic spine 3V 04/11/2025 09:42 Indication: Thoracic back pain Procedure: 3 views thoracic spine Comparison: 05/09/2023 Findings: Mild multilevel thoracic spondylosis. No fracture, subluxation or dislocation. Mild levocurvature of the lower thoracic spine. There are cholecystectomy clips present. Pedicles intact. Impression: 1: Mild thoracic spondylosis. Reviewed, dictated and finalized at location O. Impression: 1: Mild thoracic spondylosis.
--- OUTSIDE RECORDS SUMMARY | 2025-04-11 09:39 | XMS_ITS | Clinical Summary ---
Author Organization [facility] Address [address] [address] Care Team Providers Care Senior Market Intelligence Consultant Name Role Phone Raymundo Palacios MD Primary Care Provider Source Comments [facility],non-owned Affiliates and Associated Physician Practices is amultiple site organization consisting of ambulatory clinics and hospital sitesin [place], [place], [place] and [place]. This disclosure is being madepursuant to the Care Everywhere program and may not contain all information available regarding this patient. Last updated 18.[facility] [employer] Social History Tobacco Use Types Packs/Day Years Used Date Smoking Tobacco: Never Assessed Comments Unknown Sex and Gender Information Value Date Recorded Sex Assigned at Not on file Legal Sex Female 5:47 PM LUMBER CHECKER Gender Identity Not on file Sexual Orientation Not on file Last Filed Vital Signs Vital Sign Reading Time Taken Comments Blood Pressure - - Pulse - - Temperature - - Respiratory Rate - - Oxygen Saturation - - Inhaled Oxygen Concentration - - Weight 69.4 kg (153 lb) 08/08/2016 12:51 PM LUMBER CHECKER Height 175.3 cm (5' 9) 08/08/2016 12:51 PM LUMBER CHECKER Body Mass Index 22.59 08/08/2016 12:51 PM LUMBER CHECKER Plan of Treatment Health Maintenance Due Date [...] complete this topic Insurance [employer] Care Teams Senior Market Intelligence Consultant Relationship Specialty Start Date End Date Raymundo Palacios MD [address] [place] [address] PCP - General 07/08/17
--- OUTSIDE RECORDS SUMMARY | 2025-04-11 09:40 | XMS_ITS | Clinical Summary ---
Author Organization [facility] Address [address] [place] [address] Care Team Providers Care Welding Inspector Name Role Phone Raymundo Palacios MD Primary Care Provider [phone] Manjinder Cortes MD Unavailable Allergies No known active allergies Medications estradioL [...] on file Legal Sex Female 8:54 AM GEOSCIENTIST Gender Identity Not on file Sexual Orientation Not on file Obstetrics History Para Term AB IAB SAB Ectopic Multiple Livin g Live Births 2 2 2 Date Outcome GA Total Labor Labor/2nd/3rd Weight Sex Type Anes PTL Alka A1 A5 Name Clin Term Term Last Filed Vital Signs Vital Sign Reading Time Taken Comments Blood Pressure 113/66 07/25/2024 11:11 AM GEOSCIENTIST Pulse 83 07/25/2024 11:11 AM GEOSCIENTIST Temperature 36.8 C (98.3 F) 07/25/2024 11:11 AM GEOSCIENTIST Respiratory Rate 16 07/25/2024 11:1 1 AM GEOSCIENTIST Oxygen Saturation 97% 07/25/2024 11: 11 AM GEOSCIENTIST Inhaled Oxygen Concentration - - Weight 80.6 kg (177 lb 12.8 oz) 024 11:11 AM GEOSCIENTIST Height 174 cm (5' 8.5) 07/27/2023 10:3 0 AM GEOSCIENTIST Body Mass Index 26.64 07/27/2023 10:30 AM GEOSCIENTIST Plan of Treatment Health Maintenance Due Date [...] Read Routine (OP Routine) 09/03/2023 7:37 AM GEOSCIENTIST Screening mammogram, encounter for from Last 3 Months or Most Recently Relevant to Health Maintenance Results * Screening Mammogram Bilateral W Jcarlos (09/03/2023 7:37 AM GEOSCIENTIST) Anatomical Region Laterality Modality Breast Bilateral Mammography 09/08/2023 8:39 PM GEOSCIENTIST Impressions 09/08/2023 8:39 PM GEOSCIENTIST There is no mammographic evidence of malignancy. A 1 year screening mammogram is recommended. BI-RADS: 1 - Negative. The patient has been or will be contacted. The patient will be entered into a reminder system with a target due date of 1 year for her next mammogram. Electronically signed by: Odette Coronel M.D. Narrative 09/08/2023 8:39 PM GEOSCIENTIST EXAMINATION: SCREENING MAMMOGRAM BILATERAL W JCARLOS ORDERING [...] Most Recently Relevant to Health Maintenance Insurance [facility] [place] PPO [facility] MEDIC[facility] Care Teams Welding Inspector Relationship Specialty Start Date End Date Raymundo Palacios MD PCP - General 11/23/16 Manjinder Cortes MD [address] [facility] [address] [place] [id number] Medical Oncologist/Violin Repairer Medical Oncology 07/26/22
== END 2025-04-11 09:10 | disposition home or self-care (01) ==
PROVIDERS: PCP Family Medicine; Visit Provider Family Medicine
DX: M51.369 Other intervertebral disc degeneration, lumbar region without mention of lumbar back pain or lower extremity pain (principal); M47.894 Other spondylosis, thoracic region; M47.897 Other spondylosis, lumbosacral region
CPT/HCPCS: 72072; 72114

== ENCOUNTER 2025-05-21 08:44 | Outpatient (CLI) | payer MEDICARE, OTHER, SELFPAY ==
--- NOTE | ~2025-05-21 | CT_ITS ---
EXAMINATION: CT abdomen pelvis w con DATE: 05/21/2025 09:20 INDICATION: Unspecified abdominal pain. TECHNIQUE: Computed tomography (CT) of the abdomen and pelvis was performed with 100 mL Omnipaque 350 intravenous contrast. Automated exposure control and iterative reconstruction technique were employed. The dose-length product was 652.00 mGy-cm. COMPARISON: CT abdomen and pelvis 04/05/2016 FINDINGS: The visualized portions of the lung bases demonstrate mild atelectasis. No pleural effusion. The heart size is normal. No pericardial effusion. There is a small sliding hiatal hernia. The liver and spleen are normal. There are changes of cholecystectomy. The pancreas and adrenal glands are normal. There is a 5 mm cyst in right kidney. Left kidney is absent. There is diverticulosis of the colon without evidence of diverticulitis. The appendix is normal. There are no pathologically enlarged lymph nodes. Again seen is a small volume of pelvic ascites. There is severe lower lumbar spondylosis. IMPRESSION: 1. Small sliding hiatal hernia. 2. Small volume of pelvic ascites. Reviewed, dictated and finalized at location E.
--- OUTSIDE RECORDS SUMMARY | 2025-05-21 08:59 | XMS_ITS | Clinical Summary ---
Author Organization [facility] Address [address] [place] [address] Care Team Providers Care Social Media Community Manager Name Role Phone Raymundo Palacios MD Primary Care Provider [phone] Source Comments [facility],non-owned Affiliates and Associated Physician Practices is amultiple site organization consisting of ambulatory clinics and hospital sitesin [place], [place], [place] and [place]. This disclosure is being madepursuant to the Care Everywhere program and may not contain all information available regarding this patient. Last updated 18.[facility] Social History Tobacco Use Types Packs/Day Years Used Date Smoking Tobacco: Never Assessed Comments Unknown Sex and Gender Information Value Date Recorded Sex Assigned at Not on file Legal Sex Female 5:47 PM TAILINGS MAN Gender Identity Not on file Sexual Orientation Not on file Last Filed Vital Signs Vital Sign Reading Time Taken Comments Blood Pressure - - Pulse - - Temperature - - Respiratory Rate - - Oxygen Saturation - - Inhaled Oxygen Concentration - - Weight 69.4 kg (153 lb) 08/08/2016 12:51 PM TAILINGS MAN Height 175.3 cm (5' 9) 08/08/2016 12:51 PM TAILINGS MAN Body Mass Index 22.59 08/08/2016 12:51 PM TAILINGS MAN Plan of Treatment Health Maintenance Due Date [...] 2005 ZOSTER VACCINE (1 of 2) 2005 DEPRESSION SCREENING 08/22/2024 COVID-19 VACCINE (1 - 2023-2 5 season) 2025 INFLUENZA VACCINE (#1) 2025 Respiratory Syncytial Virus [...] complete this topic Insurance [employer] Care Teams Social Media Community Manager Relationship Specialty Start Date End Date Raymundo Palacios MD [address] [place] [address] PCP - General 07/08/17
--- OUTSIDE RECORDS SUMMARY | 2025-05-21 08:59 | XMS_ITS | Clinical Summary ---
Author Organization [facility] Address [address] [place] [address] Care Team Providers Care Parachutist/Combatant Diver Qualified Name Role Phone Raymundo Palacios MD Primary Care Provider [phone] Manjinder Cortes MD Unavailable [phone] Allergies No known active allergies Medications estradioL [...] on file Legal Sex Female 8:54 AM PRESIDENT ERGONOMIC CONSULTING Gender Identity Not on file Sexual Orientation Not on file Obstetrics History Para Term AB IAB SAB Ectopic Multiple Livin g Live Births 2 2 2 Date Outcome GA Total Labor Labor/2nd/3rd Weight Sex Type Anes PTL Alka A1 A5 Name Clin Term Term Last Filed Vital Signs Vital Sign Reading Time Taken Comments Blood Pressure 113/66 07/25/2024 11:11 AM PRESIDENT ERGONOMIC CONSULTING Pulse 83 07/25/2024 11:11 AM PRESIDENT ERGONOMIC CONSULTING Temperature 36.8 C (98.3 F) 07/25/2024 11:11 AM PRESIDENT ERGONOMIC CONSULTING Respiratory Rate 16 07/25/2024 11:1 1 AM PRESIDENT ERGONOMIC CONSULTING Oxygen Saturation 97% 07/25/2024 11: 11 AM PRESIDENT ERGONOMIC CONSULTING Inhaled Oxygen Concentration - - Weight 80.6 kg (177 lb 12.8 oz) 024 11:11 AM PRESIDENT ERGONOMIC CONSULTING Height 174 cm (5' 8.5) 07/27/2023 10:3 0 AM PRESIDENT ERGONOMIC CONSULTING Body Mass Index 26.64 07/27/2023 10:30 AM PRESIDENT ERGONOMIC CONSULTING Plan of Treatment Health Maintenance Due Date Last Done Comments Colon Cancer Screening-Colonoscopy 1955 Depression Screening 1955 Fall Risk Assessment 1955 Hepatitis C Screening 1955 Osteoporosis Screening-Bone Density Scan 1955 Hepatitis B Screening 1973 Zoster Vaccine (1 of 2) 11/12/2016 09/17/19 17, 07/30/2016, 07/13/2016, Additional history exists Well Visit 65+ 2020 Breast Cancer Screening-Mammogram 09/03/2024 024 Covid-19 Vaccine (2024-09 6 season) 2025 06/21/2022, 06/21/2022, 11/20/2021, Additional history exists Influenza Vaccine (#1) 2025 3, 06/21/2022, 06/21/2022, Additional history exists DTaP/Tdap/Td Vaccine (2 - Td or Tdap) 05/17/2033 05/17/2023 Pneumococcal vaccine 65+ Completed 11/23/2021 Procedures Procedure Name Priority Date/Time Associated Diagnosis Comments SCREENING MAMMOGRAM BILATERAL W JCARLOS Schedule Routine, Read Routine (OP Routine) 09/03/2023 7:37 AM PRESIDENT ERGONOMIC CONSULTING Screening mammogram, encounter for from Last 3 Months or Most Recently Relevant to Health Maintenance Results * Screening Mammogram Bilateral W Jcarlos (09/03/2023 7:37 AM PRESIDENT ERGONOMIC CONSULTING) Anatomical Region Laterality Modality Breast Bilateral Mammography 09/08/2023 8:39 PM PRESIDENT ERGONOMIC CONSULTING Impressions 09/08/2023 8:39 PM PRESIDENT ERGONOMIC CONSULTING There is no mammographic evidence of malignancy. A 1 year screening mammogram is recommended. BI-RADS: 1 - Negative. The patient has been or will be contacted. The patient will be entered into a reminder system with a target due date of 1 year for her next mammogram. Electronically signed by: Odette Coronel M.D. Narrative 09/08/2023 8:39 PM PRESIDENT ERGONOMIC CONSULTING EXAMINATION: SCREENING MAMMOGRAM BILATERAL W JCARLOS ORDERING [...] Most Recently Relevant to Health Maintenance Insurance [facility] [employer] PPO [facility] HMO [facility] MEDICARE [facility] Care Teams Parachutist/Combatant Diver Qualified Relationship Specialty Start Date End Date Raymundo Palacios MD PCP - General 11/23/16 Manjinder Cortes MD [address] [facility] [address] [place] [id number] Medical Oncologist/Camper Assembler Medical Oncology 07/26/22
[2025-05-21 09:10] LABS: Estimated Glomerular Filt Rate > 60
== END 2025-05-21 08:45 | disposition home or self-care (01) ==
PROVIDERS: PCP Family Medicine; Visit Provider Family Medicine
DX: K44.9 Diaphragmatic hernia without obstruction or gangrene (principal); R18.8 Other ascites
CPT/HCPCS: 74177; Q9967

== ENCOUNTER 2025-06-25 09:53 | Outpatient (CLI) | payer MEDICARE, OTHER, SELFPAY ==
--- NOTE | ~2025-06-25 | MM_ITS ---
EXAMINATION: MM screening misty BI w will HISTORY: Screening TECHNIQUE: Craniocaudal and mediolateral oblique 3-D tomosynthesis images were obtained and synthetic 2-D images were generated. CAD analysis was submitted and interpreted. COMPARISON: Comparison to multiple prior studies sequentially, with oldest reviewed study dated , 04/08/2017 BREAST PARENCHYMAL COMPOSITION: The breasts are heterogeneously dense, which may obscure small masses. FINDINGS: There is no evidence of suspicious mass, calcification, or architectural distortion to suggest malignancy in either breast. IMPRESSION: 1. No mammographic evidence of malignancy. 2. Recommend routine screening mammography in one year. BI-RADS Category 1: Negative Reviewed, dictated and finalized at location B. [place] [employer]
== END 2025-06-25 09:54 | disposition home or self-care (01) ==
LOC: MICIMG 09:54
PROVIDERS: PCP Obstetrics & Gynecology; Visit Provider Family Medicine
DX: Z12.31 Encounter for screening mammogram for malignant neoplasm of breast (principal)
CPT/HCPCS: 77063; 77067

== ENCOUNTER 2025-07-04 12:56 | Outpatient (CLI) | payer MEDICARE, OTHER, SELFPAY ==
--- NOTE | ~2025-07-04 | MR_ITS ---
EXAM/PROCEDURE: MR abdomen wo/w con HISTORY: R10.13 - Epigastric pain COMPARISON: CT exam from May 21 TECHNIQUE: Multiplanar contrast-enhanced MRI of the abdomen FINDINGS: Patient status post cholecystectomy. The common bile duct measures approximately 10 mm in greatest no pathologic biliary ductal stone. The pancreatic duct appears normal. No choledocholithiasis or suspicious filling defects seen. Left kidney absent. The right kidney appears normal other than 5 mm simple appearing cyst in the midpole region. The pancreas is appear within normal is. Adrenal glands liver stomach or chest visualized bones and aorta are unremarkable. IMPRESSION: No acute findings to explain source of patient's symptoms. Patient is status post cholecystectomy with biliary ductal system within normal limits. The pancreas appears normal. Reviewed, dictated and finalized at location A. SEWER IMPRESSION: No acute findings to explain source of patient's symptoms. Patient is status po st cholecystectomy with biliary ductal system within normal limits. The pancrea s appears normal.
== END 2025-07-04 12:57 | disposition home or self-care (01) ==
LOC: MICIMG 12:58
PROVIDERS: PCP Obstetrics & Gynecology; Visit Provider Family Medicine
DX: R10.13 Epigastric pain (principal); R18.8 Other ascites; K44.9 Diaphragmatic hernia without obstruction or gangrene
CPT/HCPCS: 74183

== ENCOUNTER 2025-07-12 07:59 | Outpatient (CLI) | payer MEDICARE, OTHER, SELFPAY ==
--- NOTE | ~2025-07-12 | DEXA_ITS ---
Bone Density Report Name: ALTHEA TELLES Age: 69 Sex: Female Ethnicity: White Date of : 1955 Indication: osteopenia; cancer; hysterectomy; Referring Provider: GUADALUPE HESTER Study: Bone densitometry was performed. Exam Date: July 12, 2025 Accession number: [id number] Bone Density: Region BMD T-score Z-score Classification AP Spine(L1-L4) 0.834 -1.9 0.2 Osteopenia Femoral Neck (Left) 0.708 -1.3 0.5 Osteopenia Total Hip (Left) 0.946 0.0 1.5 Normal Femoral Neck (Right) 0.748 -0.9 0.9 Normal Total Hip (Right) 0.877 -0.5 1.0 Normal Total Hip Mean 0.911 -0.3 1.3 Normal World Health Organization criteria for BMD impression classify patients as: Normal (T-score at or above -1.0), Osteopenia (T-score between -1.0 and -2.5), or Osteoporosis (T-score at or below -2.5). 10-year Fracture Risk(1): Major Osteoporotic Fracture 9.5% Hip Fracture 1.2% Reported Risk Factors: [place] (), Neck BMD=0.708, BMI=25.9 (1) FRAX(R) Version 3.08. Fracture probability calculated for an untreated patient. Fracture probability may be lower if the patient has received treatment. Previous Exams: -- Region Exam Age BMD T-score BMD Change BMD Change Date g/cm2 vs Baseline vs Previous -- AP Spine (L1-L4) 07/12/2025 69 0.834 -1.9 1.2% 1.2% 06/23/2023 67 0.825 -2.0 Total Hip(Left) 07/12/2025 69 0.946 0.0 1.7% 1.7% 06/23/2023 67 0.930 -0.1 Total Hip(Right) 07/12/2025 69 0.877 -0.5 -2.1% -2.1% 06/23/2023 67 0.896 -0.4 -- *Denotes significance at 95% confidence level, LSC for AP Spine = 0.022 g/cm2, LSC for Total Hip = 0.027 g/cm2 Clinical Information Provided by Patient: Has used the following medications: HRT (i.e. estrogen/hormone therapy), Vitamin D, Calcium Has the following medical conditions: Cancer, Hysterectomy, leukemia Patient maximum height was 70 Menopause Age: 50 No regular weight bearing exercise Drinks caffeinated beverages Onset of menses at age 13 Number of children 2 Impression: The patient has low bone mass, based on the Total Spine T-score. The patient has an estimated ten-year risk of hip fracture of 1.2% and an estimated ten-year risk of major fracture of 9.5%, based on the WHO FRAX algorithm. No significant bone loss was observed. Discussion: BONE DENSITY IS LOW AT ONE OR MORE SKELETAL SITES. This patient's lowest T-score is low at one or more skeletal sites. It meets the World Health Organization's (WHO) criteria for ?low bone mass? (T-score between -1.0 and -2.5). The patient's 10-year risk of fracture as calculated by FRAX is less than the threshold where pharmacological therapy is recommended by the National Osteoporosis Foundation (NOF). However, all treatment decisions require clinical judgment and consideration of individual patient factors, including patient preferences, comorbidities, previous drug use, risk factors not captured in the FRAX model (e.g., frailty, falls, vitamin D deficiency, increased bone turnover, interval significant decline in bone density) and possible under or overestimation of fracture risk by FRAX. The patient should follow a healthful lifestyle (good nutrition with adequate calcium and vitamin D, and appropriate weight-bearing exercise). Follow-Up: Consider repeating this study in 2 to 3 years to reassess this patient's status, or sooner if there is some new clinical indication. Reported by: MILIND on 07/12/2025 8:46:00 AM. Reviewed, dictated and finalized at location A.
== END 2025-07-12 08:00 | disposition home or self-care (01) ==
LOC: MICIMG 08:00
PROVIDERS: PCP Obstetrics & Gynecology; Visit Provider Family Medicine
DX: Z78.0 Asymptomatic menopausal state (principal); M85.88 Other specified disorders of bone density and structure, other site; M85.852 Other specified disorders of bone density and structure, left thigh
CPT/HCPCS: 77080